=== PATIENT | male | born 1980 | race Caucasian/White ===

== ENCOUNTER 2019-02-04 13:23 | Inpatient (IN) ==
[2019-02-04] MEDS ORDERED: ACETAMINOPHEN 1,000 MG/100 ML VIAL IV STA (14:07)
[2019-02-04] MEDS ORDERED: PROCHLORPERAZINE 2 ML IV ONE (14:12)
[2019-02-04] MEDS ORDERED: SODIUM CHLORIDE 0.9% 1000ML 2,000 ML IV SCH (14:15)
--- NOTE | 2019-02-04 14:40 | XRay Report ---
XR chest 1V portable CLINICAL HISTORY: Chest Pain dyspnea COMPARISON STUDY: No previous studies for comparison. FINDINGS: Mild fullness of the mid to superior mediastinum felt to be technical due to the AP portabl e technique. Lungs are clear. Diaphragms are smooth. IMPRESSION: No acute process. The above report was generated using voice recognition software. It may contain grammatical, syntax or spelling errors. Electronically signed by: William Acevedo M.D. 02/04/2019 2:38 PM
[2019-02-04 14:42] LABS: Basophils # (auto) 0.01 K/uL (0-0.2); Basophils % (auto) 0.1 %; Hematocrit (blood only) 44.1 % (42-52); Hemoglobin 15.6 g/dL (14.0-18.0); Immature Granulocytes # (auto) 0.05 K/uL (0.00-0.02); Immature Granulocytes % (auto) 0.4 %; Lymphocytes # (auto) 0.75 K/uL (1.2-3.4); Lymphocytes % (auto) 6.1 %; Mean Corpuscular Hgb Conc 35.4 g/dL (32-36); Mean Corpuscular Volume 80.2 fL (80-100); Mean Platelet Volume 10.3 fL (7.4-10.4); Monocytes # (auto) 0.55 K/uL (0.11-0.59); Monocytes % (auto) 4.5 %; Neutrophils % (auto) 88.9 %; Platelet Count 179 K/uL (130-400); RDW Coefficient of Variation 12.9 % (11.5-14.5); RDW Standard Deviation 37.3 fL (36.4-46.3); White Blood Count 12.26 K/uL (4.8-10.8)
[2019-02-04 14:58] LABS: Albumin Level 3.6 gm/dl (3.4-5.0); BUN Creatinine Ratio 16.5 (10-20); Calcium 8.5 mg/dl (8.5-10.1); Creatinine Clr Calc Pharmacy 131.4 ml/min; Est GFR (African American) 115.1; Est GFR (Non-African American) 99.3; Potassium 3.7 mmol/L (3.5-5.1)
[2019-02-04 15:03] LABS: Albumin Globulin Ratio 0.8 (0.9-2); Bilirubin,Total 0.6 mg/dl (0.2-1); Globulin 4.4 gm/dl (2.5-4.0); Troponin I 0.03 ng/ml (0-0.045)
--- NOTE | 2019-02-04 15:42 | CT Scan Report ---
CT head/brain wo con CT DOSE: 884.08 mGy.cm HISTORY: Headache. Mental status change. Headache syncope TECHNIQUE: Multiaxial CT images of the head were performed without the use of intravenous contrast. A dose lowering technique was utilized adhering to the principles of ALARA. Comparison: 01/30/2019 Findings: The paranasal sinuses and mastoid air cells are clear. The calvarium and skull base are int act. The ventricles and sulci are within normal limits. There is no mass, hematoma, midline shift, or acute infarct. Impression: No acute intracranial abnormality. No change from the prior exam dated 01/30/2019. The above report was generated using voice recognition software. It may contain grammatical, syntax or spelling errors. Electronically signed by: William Acevedo M.D. 02/04/2019 3:41 PM
[2019-02-04] MEDS ORDERED: MAGNESIUM SULFATE / D5W 1 GM/100 ML BAG IV ONE (17:07)
[2019-02-04] MEDS ORDERED: NON-FORMULARY MEDICATION STA (17:07)
[2019-02-04] MEDS ORDERED: HALOPERIDOL LACTATE 5 MG in SODIUM CHLORIDE 0.9% 500 ML IV ONE (17:30)
[2019-02-04] MEDS ORDERED: XYLOCAINE 1%/SOD BICARB 20 ML VIAL INFIL ONE (18:49)
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
[2019-02-04] MEDS ORDERED: ACYCLOVIR CONSULT ACTIVE PRN (20:55)
[2019-02-04] MEDS ORDERED: ACETAMINOPHEN 325 MG TAB PO PRN (21:24)
[2019-02-04] MEDS ORDERED: VANCOMYCIN CONSULT ACTIVE PRN (21:24)
[2019-02-04] MEDS ORDERED: ICU PROTOCOL FOR HYPERGLYCEMIA PRN ×2 (21:24)
[2019-02-04 21:49] LABS: Amphetamines+Metham, Urine Neg (Neg); Barbiturates, Urine Neg (Neg); Benzodiazepine, Urine Neg (Neg); Cocaine, Urine Neg (Neg); MDMA (Ecstacy), Urine Neg (Neg); Methadone, Urine Neg (Neg); Opiate, Urine Neg (Neg); Phencyclidine, Urine Neg (Neg)
[2019-02-04] MEDS ORDERED: cefTRIAXone SODIUM 2,000 MG in DEXTROSE 5% 50 ML IV SCH (22:00)
[2019-02-04 22:10] LABS: Appearance CSF Clear; CSF Count Tube # 4; CSF Xanthrochromic No xanthochromia; Color CSF Colorless; Red Blood Cell CSF (A) 54 /uL (0-); Red Blood Cell CSF (B) 54 /uL (0-); White Blood Cell CSF (A) 4 /uL (0-5); White Blood Cell CSF (B) 2 /uL (0-5)
[2019-02-04] MEDS ORDERED: ACETAMINOPHEN 1,000 MG/100 ML VIAL IV PRN (22:12)
[2019-02-04 22:15] LABS: Total Protein CSF 53.6 mg/dl (15-45)
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
[2019-02-04] MEDS ORDERED: DEXTROSE 5% IV SCH (22:30)
[2019-02-04] MEDS ORDERED: ACYCLOVIR SOD IV SCH (22:30)
[2019-02-04] MEDS ORDERED: PHARMACY GLYCEMIC MGMT CONSULT PRN (22:34)
[2019-02-04 22:43] LABS: C Reactive Protein 1.17 mg/dl (0-0.29); T4 Free Thyroxine 1.26 ng/dl (0.8-1.6)
--- NOTE | 2019-02-04 22:47 | Pharmacy Report ---
Pharmacy Abx Dose Short Note - Date of Service February 04, 2019 - Assessment & Plan Assessment 38 yo Male/Female receiving VANC/CEFTRIAXONE/ACYCLOVIR-IV for treatment of possible MENINGITIS * Day # 1 of antimicrobial therapy. Plan: Vanc-IV: * Estimated pharmacokinetics: T 1/2~6 hrs * LOADING DOSE: VANC 2500mg (~20mg/kg) IV x 1, 02/04/19 2300 then * MAINTENANCE DOSE: VANC 1500mg (~12mg/kg) IV x 1 @ 02/05 0400 * Pharmacy to reassess 02/05 AM Acyclovir-IV: ordered 10mg/kg IBW (640mg) IV q 8 hours Glycemic Consult: * Give Lantus 20 units sq x 1 * Novolog Goal 140-180mg/dL, CF 20, CR 6. Ordered BSG q 4 hours. Pharmacy will continue to follow and will adjust dose/frequency as necessary. Thank you.
[2019-02-04] MEDS ORDERED: VANCOMYCIN HCL 2,500 MG in SODIUM CHLORIDE 0.9% 500 ML IV ONE (23:00)
[2019-02-04 23:14] LABS: Lyme Ab IgG w/WB Rflx Negative (Negative)
[2019-02-04 23:21] LABS: Lyme Ab IgM w/WB Rflx Equivocal (Negative)
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
[2019-02-05] MEDS ORDERED: INSULIN GLARGINE SOLOSTAR 100 UNITS/ML 3 ML PEN SC ONE
[2019-02-05] MEDS ORDERED: INSULIN ASPART 100 UNITS/ML VIAL SC SCH
[2019-02-05] MEDS ORDERED: GADOBUTROL 65ML VIAL IV PRN (00:42)
[2019-02-05] MEDS: INSULIN ASPART 100 UNITS/ML 3 ML PEN SC SCH ×2 (01:00→04:53)
[2019-02-05] MEDS ORDERED: PHENYTOIN IV STA (03:27)
[2019-02-05] MEDS ORDERED: SODIUM CHLORIDE 0.9% IV STA (03:27)
[2019-02-05] MEDS ORDERED: dexAMETHasone 4 MG in SYRINGE 0 ML IV SCH (04:00)
[2019-02-05] MEDS ORDERED: VANCOMYCIN HCL 1,500 MG in SODIUM CHLORIDE 0.9% 500 ML IV ONE (04:00)
[2019-02-05] MEDS ORDERED: NORMOSOL-R 1,000 ML IV SCH (05:00)
[2019-02-05 05:19] LABS: Hematocrit (blood only) 40.6 % (42-52); Hemoglobin 14.2 g/dL (14.0-18.0); Mean Corpuscular Volume 79.5 fL (80-100); Mean Platelet Volume 10.2 fL (7.4-10.4); Platelet Count 175 K/uL (130-400); RDW Coefficient of Variation 12.8 % (11.5-14.5); RDW Standard Deviation 36.7 fL (36.4-46.3); Red Blood Count 5.11 M/uL (4.7-6.1); White Blood Count 11.73 K/uL (4.8-10.8)
[2019-02-05 05:45] LABS: BUN Creatinine Ratio 16.9 (10-20); Calcium 7.8 mg/dl (8.5-10.1); Creatinine Clr Calc Pharmacy 142.9 ml/min; Est GFR (African American) 126.6; Est GFR (Non-African American) 109.2; Potassium 3.5 mmol/L (3.5-5.1)
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
[2019-02-05] MEDS ORDERED: RAPID SEQUENCE INDUCTION BAG ONE (05:50)
[2019-02-05] MEDS ORDERED: OPTIRAY 320 125ml IV PRN (06:16)
[2019-02-05] MEDS ORDERED: Heparin IV Standard *NO* Bolus IV ONE (06:17)
[2019-02-05] MEDS ORDERED: HEPARIN 25000 UNIT/500 ML D5W IV ONE (06:21)
[2019-02-05] MEDS ORDERED: PROPOFOL IV EMULSION 10 MG/ML 100 ML VIAL IV ONE (06:21)
[2019-02-05] MEDS ORDERED: Heparin Adult STANDARD Wt-Based Dextrose 5% 25,000 units/500 mL IV SCH (06:30)
[2019-02-05 06:36] LABS: Estimated Average Glucose 258 mg/dl; Hemoglobin A1C 10.6 % (4.5-5.6)
--- NOTE | 2019-02-05 06:38 | Procedure Note ---
Procedure Note Date of Service February 05, 2019 APC: Jacky Contreras PA-C. Attending: Dr. Wayne A time-out was completed verifying correct patient, procedure, site, positioning. Patient was evaluated and required intubation for airway protection. Sedative agent used: Fentanyl, Versed, Etomidate, Propofol Paralysis agent used: None Emergent consent was implied given patients rapidly declining clinical status and need for airway protection. The patient was prepared in the appropriate fashion. Sedation was achieved utilizing Fentanyl, Versed, Propofol and Etomidate, per Dr. Butt administration. The patient was easily ventilated using [id number] to achieve adequate oxygenation. A 7.5 [place] endotracheal tube was placed under Glidescope to 26 cm at the lip. The stylette was removed and balloon was inflated with 10mL of air. Appropriate Colorimetric change was appreciated. Bilateral breath sounds were heard without air sounds in the abdomen. Dr. Butt was present for the entire procedure. Post Intubation Chest X-ray confirms placement without pneumothorax. Patient tolerated the procedure well and there were no immediate complications.
[2019-02-05] MEDS ORDERED: fentaNYL citrate 100 MCG/2 ML VIAL IV PRN (06:42)
[2019-02-05] MEDS ORDERED: PROPOFOL 1,000 MG/100 ML VIAL IV SCH (06:42)
--- NOTE | 2019-02-05 06:46 | CT Scan Report ---
CT head/brain wo con CLINICAL HISTORY: 38 years-old Male with AMS, eval for change in status. Acutely altered mental stat us TECHNIQUE: Multiple axial CT images of the head were obtained without contrast. A dose lowering tech nique was utilized adhering to the principles of ALARA. COMPARISON: CTA had of same day, brain MRI and CT head 02/04/2019. FINDINGS: Study is mildly motion degraded. No acute intracranial hemorrhage, midline shift, intracranial mass, hydrocephalus, territorial ischemia or abnormal extra-axial collection. The calvarium is intact. Mastoid air cells are clear. Minimal mucosal thickening about the right fro ntal sinus. The remaining paranasal sinuses are clear. Orbits are unremarkable. There are a few ovoid mildly hyperdense scalp lesions redemonstrated measuring up to 1.6 cm, possibly reflective of comple x sebaceous cysts. IMPRESSION: Motion degraded exam without acute intracranial abnormality. The above report was generated using voice recognition software. It may contain grammatical, syntax o r spelling errors. Electronically signed by: Hardik Thomas M.D. 02/05/2019 6:45 AM
--- NOTE | 2019-02-05 06:59 | XRay Report ---
XR chest 1V portable HISTORY: 38 years-old Male s/p intubation acute respiratory failure COMPARISON: Chest radiograph 02/04/2019 TECHNIQUE: Portable AP view of the chest FINDINGS: Lungs are hypoinflated with bronchovascular crowding and mediastinal widening. Endotracheal tube over lies the midline, 3.5 cm superior to the erasto. Enteric tube courses below the diaphragm with distal tip within the region of the mid gastric lumen. Mild right hemidiaphragmatic elevation. Right infrah ilar and bibasilar opacities suggest probable atelectasis. No pneumothorax, pleural effusion or overt pulmonary edema. Bones appear to be grossly intact. IMPRESSION: 1. Endotracheal tube overlies the midline, 3.5 cm superior to the erasto. 2. Enteric tube distal tip overlies the region of the mid gastric lumen. 3. Hypoinflation with bronchovascular crowding and probable bibasilar atelectasis. The above report was generated using voice recognition software. It may contain grammatical, syntax o r spelling errors. Electronically signed by: Hardik Thomas M.D. 02/05/2019 6:57 AM
[2019-02-05 07:00] LABS: INR 1.3 (0.9-1.1); Partial Thromboplastin Ratio 0.8; Partial Thromboplastin Time 22.7 Seconds (21.0-31.0); Prothrombin Time 13.4 Seconds (9.0-12.0)
--- NOTE | 2019-02-05 07:03 | Magnetic Resonance Report ---
MR brain wo/w con CLINICAL HISTORY: intractable migraine headache COMPARISON STUDY: No previous studies for comparison. TECHNIQUE: Utilizing a 1.5 Surekha magnet and dedicated coil, multiplanar, multiecho imaging of the br ain was performed pre and postcontrast administration. IV administration of 8 mL of Gadavist contras t was uneventful. FINDINGS: Diffusion-weighted images show evidence for cortical ischemic change lateral aspect left te mporal lobe. T1 images show increase in signal of the left transverse sinus. Coronal FLAIR images edy w several small foci of increased signal within the periventricular and deep matter regions. There is persistent increased signal within the left transverse sinus as well as components of the left jugul ar vein. The ventricular system is midline. Postcontrast images again show atypical enhancement of the left tr ansverse sinus with normal enhancement characteristics the right transverse sinus. There is slight me ningeal enhancement over the left temporal parietal meningeal region. There is also subtle enhancemen t overlying the left tentorium may be a trace of left temporal parenchymal enhancement. Diagnostic considerations include ischemic process, with the possibility of meningitis versus changes and secondary venous thrombosis also diagnostic considerations.. IMPRESSION: 1. Small focus of acute cortical ischemic change lateral aspect left temporal lobe. 2. This is associated with probable left transverse sinus venous thrombosis. 3. Nonspecific enhancement characteristics of the left dura/meninges over the left cerebral hemispher e suspect for entities such as meningitis, versus reactive change due to left transverse sinus thromb osis. The above report was generated using voice recognition software. It may contain grammatical, syntax or spelling errors. Electronically signed by: William Acevedo M.D. 02/05/2019 7:02 AM
--- NOTE | 2019-02-05 07:10 | CT Scan Report ---
NECK CTA HISTORY: LEFT venous sinsus thrombsis w/ f/u TECHNIQUE: Multiaxial CT images of the neck were performed following the intravenous administration o f contrast to evaluate the major cervical vessels. Maximum intensity projection images were also obta ined. All measurements were calculated based on NASCET criteria. A dose lowering technique was utili zed adhering to the principles of ALARA. COMPARISON STUDY: None. FINDINGS: The aortic arch and proximal great vessels are widely patent. There is no significant sten osis, occlusion, or dissection identified within the bilateral common carotid, internal carotid, or v ertebral arteries. The lung apices are clear. The left transverse sinus, sigmoid sinus, and proximal left internal jugular vein at the C1 level is not opacified. There is trace contrast throughout the r emaining left internal jugular vein suggesting nonocclusive thrombus. However, this could be due to i nadequate opacification. IMPRESSION: 1. No significant stenosis, occlusion, or dissection identified within the carotid or vertebral arter ies. 2. Nonopacification of the left transverse sinus, left sigmoid sinus, and proximal left internal jugu lar vein at the C1 level. This is concerning for thrombus. There is also partial opacification of the remaining left internal jugular vein suggesting nonocclusive thrombus. However, this should be confi rmed with venous Doppler. Electronically signed by: Obinna Colunga M.D. 02/05/2019 7:08 AM
--- NOTE | 2019-02-05 07:13 | Magnetic Resonance Report ---
MR venography head wo con CLINICAL HISTORY: f/u ?Venous sinus thrombus, meningitis, altered mental status COMPARISON STUDY: Head CTA 02/05/2019. Brain MRI 02/04/2019. FINDINGS: There is signal loss throughout the left transverse sinus, left sigmoid sinus, left interna l jugular vein likely representing thrombosis. The superior sagittal sinus, straight sinus, vein of G radha, internal cerebral veins, right transverse sinus, and right sigmoid sinus appear patent. IMPRESSION: Above findings suggest thrombosis of the left transverse sinus, left sigmoid sinus, and left internal jugular vein. Electronically signed by: Obinna Colunga M.D. 02/05/2019 7:11 AM
--- NOTE | 2019-02-05 07:21 | CT Scan Report ---
CT angio head w con CLINICAL HISTORY: 38 years-old Male with f/u for LEFT dural venous sinus thrombosis. Left-sided du ral venous thrombosis COMPARISON STUDY: CTA of the neck and MRA head of same day TECHNIQUE: Following the IV administration of 119 cc of Optiray 320, CT angiogram of the brain was pe rformed from the skull base to the vertex. Images are reviewed in the axial, sagittal, and coronal pl anes. 3-D MIPS images are created and assessed. IV contrast was administered without complication. A dose lowering technique was utilized adhering to the principles of ALARA. CT DOSE: 1343.01 mGy.cm FINDINGS: CT ANGIOGRAM OF THE BRAIN: The imaged bilateral internal carotid arteries are patent. The bilateral anterior and middle cerebral arteries are also patent. The vertebrobasilar system and posterior cerebral arteries are widely venegas nt. There is no aneurysm, high-grade stenosis, or proximal branch occlusion identified. Nonopacification of the left internal jugular vein at the level of C1 with nonopacification of the si gmoid sinus and left transverse sinus compatible with thrombosis. The right internal jugular vein and remaining visualized dural venous sinuses appear patent. Incidental likely benign scalp lesions rede monstrated. Orbits are unremarkable. No acute calvarial fracture. Mastoid air cells and middle ear ca vities are clear. The paranasal sinuses are also generally clear with the exception of minimal right frontal maxillary sinus mucosal thickening. IMPRESSION: 1. No aneurysm, dissection, high-grade stenosis or proximal arterial branch occlusion. 2. Nonopacification of the left internal jugular vein, left sigmoid and transverse sinuses compatible with thrombosis. The above report was generated using voice recognition software. It may contain grammatical, syntax o r spelling errors. Electronically signed by: Hardik Thomas M.D. 02/05/2019 7:19 AM
--- NOTE | 2019-02-05 07:25 | Magnetic Resonance Report ---
MR angio head wo con HISTORY: 38 years-old Male f/u mri AMS, Meningitis, sinsus thrombus acutely altered mental status wi th possible meningitis and dural venous thrombosis COMPARISON: CTA had and neck and MRV of same day, MRI brain 02/04/2019 TECHNIQUE: MRA of the head was obtained without the use of IV contrast utilizing 3-D [id number] s equencing. All measurements were obtained according to NASCET criteria. FINDINGS: The large [id number] pipeline controller localizer images demonstrate no gross extracranial abnormality. The imaged bilateral internal carotid arteries, middle and anterior vertebral arteries are widely pat ent. The bilateral vertebral arteries, basilar and posterior cerebral arteries are also widely patent . No aneurysm, dissection, high-grade stenosis or proximal branch occlusion. Increased signal is noted about the left temporal lobe leptomeninges, left transverse and sigmoid sin uses and left internal jugular vein. IMPRESSION: 1. Unremarkable MRA of the head. 2. Increased signal about the left temporal lobe leptomeninges, with left transverse and sigmoid sinu s and left internal jugular vein thrombosis is better assessed on recent MRV and MR brain studies. The above report was generated using voice recognition software. It may contain grammatical, syntax o r spelling errors. Electronically signed by: Hardik Thomas M.D. 02/05/2019 7:24 AM
[2019-02-05] MEDS ORDERED: fentaNYL citrate 100 MCG/2 ML VIAL IV ONE (07:29)
[2019-02-05] MEDS ORDERED: ETOMIDATE 2 MG/ML 20 ML VIAL IV ONE (07:29)
[2019-02-05] MEDS ORDERED: MIDAZOLAM HCL 5 MG/ML VIAL IV ONE (07:29)
[2019-02-05] MEDS ORDERED: SUCCINYLCHOLINE CHLORIDE 20 MG/ML 10 ML VIAL IV ONE (07:29)
--- NOTE | 2019-02-05 09:34 | Procedure Note ---
Procedure Note Date of Service February 05, 2019 I was called the intensive care unit by Jacky Contreras PA-C, to assist in the intubation of a patient there who is going to be transferred to a tertiary care facility via aviation. His patient was tachycardic and hypertensive, with decreased mental status. Patient unable to talk to me to go over risks and benefits and discuss additional consent. It was my understanding that Mr. Contreras had discussed this with the patient previously as a possibility. I provided sedation while Mr. Contreras prepped for and performed intubation. Patient was given fentanyl, Versed, and etomidate. Please refer to the nursing notes for exact dosages. Patient continuously monitored, not hypoxic, and otherwise hemodynamically stable. Using video laryngoscopy, Mr. Contreras intubated the patient with an 8.0 ET tube. Tube was visualized passing through the vocal cords, positive color change noted on color capnography, bilateral breath sounds heard, and condensation noted in the ET tube. Patient sats remained stable in the 90s, heart rate and blood pressure otherwise stable also. Staff continue to make preparations as the flight crew was in route and patient was prepared for transfer.
[2019-02-05] MEDS ORDERED: PANTOprazole 40 MG in SYRINGE 0 ML IV SCH (11:00)
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
[2019-02-09 22:14] LABS: Source CSF
--- NOTE | 2019-02-10 11:01 | Coding Query ---
CODING QUERY To promote full compliance with coding requirements relating to patient care, provider participation is requested in all cases of dot compliance coordinator uncertainty. Please assist us with the question(s) below: Coding Question(s): 1. The Discharge Summary documents Cerebral Venous Sinus Thrombosis, Acute. Please specify below, in your clinical opinion, regarding the Acute Cerebral Venous Sinus Thrombosis. (X ) This is Nonpyogenic origin ( ) This is Septic origin 2. There is documentation, example on Critical Care Progress Note 02/05/19, of "evaluation of MRI demonstrated nonspecific findings with possible concerns for meningitis in addition to lack of flow for concerns for venous sinus thrombosis". Please clarify below, in your clinical opinion regarding the concerns for meningitis. (X ) Meningitis has been ruled-out ( ) Possible Meningitis ( ) possible Meningitis, Unspecified ( ) possible Meningitis, Other: Please Specify Physician's Response(s): Thank you [place] Gil Principal Diagnosis: "that condition established after study, to be chiefly responsible for occasioning the admission of the patient to the hospital for care." Co-Existing Principal Diagnosis: "when two or more diagnoses equally meet the criteria for principal diagnosis as determined by the circumstances of admission, diagnostic work up, and/or therapy provided, and the Alphabetic Index, Tabular List, or another coding guideline does not provide sequencing direction, any one of the diagnoses may be sequenced first." "When the physician has documented what appears to be a current diagnosis in the body of the record, but has not included the diagnosis in the final diagnostic statement, the physician should be asked whether the diagnosis should be added." ([facility] 2 QTR90. p3-4) DMITRY
--- NOTE | 2019-02-10 11:14 | Coding Query ---
BMI To promote full compliance with coding requirements relating to patient care, physician participation is requested in all cases of policy checker uncertainty. Please assist us with the question(s) below: Please place an X within the parenthesis (x). If other, please document: BMI 45 was documented in this record for this patient. If the BMI is significant, please check the box that provides a more specific associated diagnosis: ( ) Overweight/Obese () Obesity (X ) Morbid obesity ( ) Obesity Hypoventilation Syndrome (OHS) ( ) Heathy weight, not significant ( ) Underweight/Thin ( ) Other, please specify Thank you [place] ANDRES
[2019-02-10 12:30] LABS: Metanephrine, Plasma 37 pg/mL (<=57); Normetanephrine Plasma 215 pg/mL (<=148); Total Metanephrine Plasma 252 pg/mL (<=205)
[2019-02-11 08:32] LABS: HSV Type 1 DNA Not Detected (Not Detected); HSV Type 1&2 DNA Source CSF; HSV Type 2 DNA Not Detected (Not Detected); Lyme IgG CSF NO BANDS DETECTED; Lyme IgM CSF NO BANDS DETECTED; VDRL Qualitative CSF Nonreactive (Nonreactive)
[2019-02-11 12:43] LABS: 18KDIGG Band NONREACTIVE (NONREACTIVE); 23KDIGG Band NONREACTIVE (NONREACTIVE); 23KDIGM Band REACTIVE (NONREACTIVE); 28KDIGG Band NONREACTIVE (NONREACTIVE); 30KDIGG Band NONREACTIVE (NONREACTIVE); 39KDIGG Band NONREACTIVE (NONREACTIVE); 39KDIGM Band NONREACTIVE (NONREACTIVE); 41KDIGG Band NONREACTIVE (NONREACTIVE); 41KDIGM Band NONREACTIVE (NONREACTIVE); 45KDIGG Band NONREACTIVE (NONREACTIVE); 58KDIGG Band NONREACTIVE (NONREACTIVE); 66KDIGG Band REACTIVE (NONREACTIVE); 93KDIGG Band NONREACTIVE (NONREACTIVE); Lyme Antibodies, WB IgG NEGATIVE (NEGATIVE); Lyme Antibodies, WB IgM NEGATIVE (NEGATIVE)
[2019-02-12 07:20] LABS: Creatinine Ur 91 mg/dL (20-320); Total Metanephrine 435 mcg/g cr (94-445)
== END 2019-02-05 07:30 | disposition short-term general hospital (02) | DRG 92 ==
LOC: ED 13:23 → 1E 18:40

== ENCOUNTER 2020-04-08 04:36 | Inpatient (IN) ==
[2020-04-08] MEDS ORDERED: MoRPHine SULFATE 4 MG/ML 1 ML CARP\\VIAL IV STA (04:50)
[2020-04-08] MEDS ORDERED: ONDANSETRON INJ 2 MG/ML 2 ML VIAL IV STA (04:50)
[2020-04-08] MEDS ORDERED: SODIUM CHLORIDE 0.9% 1000ML 1,000 ML IV SCH (05:00)
[2020-04-08 05:18] LABS: Appearance Urine Cloudy (Clear); Bacteria Urine Automated Negative (Negative); Blood Urine 3+ (Negative); Color Urine Dark Yellow; Glucose Urine UA Negative (Negative); Ketones Urine Trace (Negative); Leukocyte Esterase Urine Trace (Negative); Nitrite Urine Negative (Negative); Protein Urine 2+ (Negative); Specific Gravity Urine 1.035 (1.000-1.030); Urobilinogen Urine Negative (Negative)
[2020-04-08 05:33] LABS: Basophils # (auto) 0.01 K/uL (0-0.2); Basophils % (auto) 0.2 %; Eosinophils # (auto) 0.09 K/uL (0-0.5); Eosinophils % (auto) 1.5 %; Hematocrit (blood only) 44.6 % (42-52); Hemoglobin 15.2 g/dL (14.0-18.0); Immature Granulocytes # (auto) 0.01 K/uL (0.00-0.02); Immature Granulocytes % (auto) 0.2 %; Lymphocytes # (auto) 0.99 K/uL (1.2-3.4); Lymphocytes % (auto) 16.3 %; Mean Corpuscular Hemoglobin 27.2 pg (25-34); Mean Corpuscular Hgb Conc 34.1 g/dL (32-36); Mean Corpuscular Volume 79.8 fL (80-100); Mean Platelet Volume 9.6 fL (7.4-10.4); Monocytes # (auto) 0.36 K/uL (0.11-0.59); Monocytes % (auto) 5.9 %; Neutrophils # (auto) 4.61 K/uL (1.4-6.5); Neutrophils % (auto) 75.9 %; Platelet Count 170 K/uL (130-400); RDW Coefficient of Variation 13.5 % (11.5-14.5); RDW Standard Deviation 38.8 fL (36.4-46.3); Red Blood Count 5.59 M/uL (4.7-6.1); White Blood Count 6.07 K/uL (4.8-10.8)
[2020-04-08 05:43] LABS: INR 2.4 (0.9-1.1); Partial Thromboplastin Ratio 1.2; Partial Thromboplastin Time 34.4 Seconds (21.0-31.0); Prothrombin Time 24.5 Seconds (9.0-12.0)
[2020-04-08 05:44] LABS: Bilirubin Urine Negative (Negative); Ictotest Urine Negative (Negative)
[2020-04-08 05:50] LABS: Albumin Level 3.8 gm/dl (3.4-5.0); BUN Creatinine Ratio 9.5 (10-20); Calcium 8.7 mg/dl (8.5-10.1); Creatinine Clr Calc Pharmacy 94.4 ml/min; Est GFR (African American) 72.7; Est GFR (Non-African American) 62.7; Potassium 3.9 mmol/L (3.5-5.1)
[2020-04-08 05:52] LABS: Albumin Globulin Ratio 0.9 (0.9-2); Bilirubin,Total 0.5 mg/dl (0.2-1); Globulin 4.1 gm/dl (2.5-4.0); Total Protein 7.9 gm/dl (6.4-8.2)
[2020-04-08 05:57] LABS: Calcium Oxalate Crystals Urine Present (None Prsent); Mucus Urine Present (None Prsent)
[2020-04-08 05:58] LABS: Cast Urine Automated 0 /lpf (0-5); RBC Urine Automated >30 /hpf (0-4)
[2020-04-08] MEDS ORDERED: cefTRIAXone SODIUM 2,000 MG/70 ML BAG IV STA (06:53)
--- NOTE | 2020-04-08 07:24 | CT Scan Report ---
ABDOMEN AND PELVIS CT WITHOUT CONTRAST CT DOSE: 1935.90 mGy.cm HISTORY: right flank pain TECHNIQUE: Multiaxial CT images of the abdomen and pelvis were performed without contrast. A dose lo wering technique was utilized adhering to the principles of ALARA. COMPARISON STUDY: Abdomen and pelvis CT 02/21/2020. FINDINGS: There is a 7 mm stone within the right ureteropelvic junction. This results in mild right h ydroureteronephrosis and periureteral fat stranding. No left renal stones. The lung bases are clear. Hepatic steatosis. Stable small cystic focus anterior to the liver. The gallbladder, pancreas, adrena l glands unremarkable. The spleen remains mildly enlarged measuring 14.5 cm in length. No retroperito katy lymphadenopathy. Suboptimal evaluation for bowel pathology due to the lack of intravenous and or al contrast. However, there is no definite bowel wall thickening or obstruction. Normal appendix. IMPRESSION: 1. A 7 mm obstructing stone at the right ureteropelvic junction resulting in mild right hydronephrosi s. 2. Mild splenomegaly, unchanged. 3. Hepatic steatosis. 4. No definite bowel wall thickening or obstruction. ACT 112: Negative or not required by law. Electronically signed by: Obinna Colunga M.D. 04/08/2020 7:22 AM
--- NOTE | 2020-04-08 07:36 | Ultrasound Report ---
TESTICULAR ULTRASOUND HISTORY: right testicle pain COMPARISON: None. FINDINGS: Right testis: 5.4 x 2.2 x 3.2 cm. There are no intratesticular masses. Normal color flow. No hydrocel e. The epididymis demonstrates a 1 cm cyst at the head. Left testis: 5.2 x 2.0 x 2.2 cm. There are no intratesticular masses. Normal color flow. No hydrocele . The epididymis demonstrates a 3 mm cyst at the head. Borderline left-sided varicocele. IMPRESSION: 1. Normal testes. 2. Small bilateral epididymal head cysts. ACT 112: Negative or not required by law. Electronically signed by: Obinna Colunga M.D. 04/08/2020 7:35 AM
--- NOTE | 2020-04-08 07:45 | Emergency Department Note ---
History of Present Illness General Chief complaint: Testicular Pain Stated complaint: TESTICULAR PAIN Time Seen by Provider: 04/08/20 04:44 History of Present Illness Maximum Pain Intensity: 3 This is a 39-year-old male presenting to the emergency department for severe acute onset right testicle pain. 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 The patient immediately came downstairs from the floor and checked into the ER for evaluation. He does have a history of kidney stones. When the pain began he was very nauseated and vomited 3 times. He does not have head, neck, chest, or upper abdomen pain. His testicle pain does radiate up into the right side abdomen. He has not taken anything [id number] for his symptoms as they just began. He rates his current pain a 3/10, however is a 9/10 at worst. He is on Coumadin for past history of venous sinus thrombosis. Home Medications Home Medications Medication Instructions Recorded Confirmed Type levetiracetam 1,000 mg PO BID 02/21/20 04/08/20 History metformin 1,000 mg PO BID 02/21/20 04/08/20 History cyclobenzaprine 10 mg PO BID PRN #10 tab 03/31/20 04/08/20 Rx warfarin See Rx Instructions .ROUTE .COMPLEX 03/31/20 04/08/20 History Allergies Allergy/AdvReac Type Severity Reaction Status Date / Time No Known Allergies Allergy Verified 04/08/20 05:39 Past Med/Surg History Medical History Admitted to intensive care unit Cerebral venous sinus thrombosis, acute DM type 2 (diabetes mellitus, type 2) (Chronic) Seizure-like activity Stroke Surgical History H/O umbilical hernia repair (Chronic) History of dental surgery (Chronic) Family History Denies family history of Seizure Social History Preferred Language: Austrian Communication Ability: Effective Watershed Engineer Required: No Beliefs That Will Affect Care: None Current Living Situation: Alone Feels Safe at Home: Yes Smoking Status: Never smoker Second Hand Exposure: No ; Hx Alcohol Use: No Hx Substance Use: No Review of Systems A total of 10 systems reviewed and were otherwise negative Physical Exam Vital Signs Vital Signs - 24 hr 04/08/20 04:36 04/08/20 04:41 04/08/20 06:36 Temperature 36.9 C Temperature Source Oral Pulse Rate 77 Pulse Rate [Left Brachial] 79 Respiratory Rate 16 16 Blood Pressure 157/101 H Blood Pressure [Left Arm] 145/88 H 128/85 Blood Pressure Mean 119 Blood Pressure Mean [Left Arm] 107 99 Pulse Oximetry 94 96 Oxygen Delivery Method Room Air Sepsis Recent Fever Within 48 Hours No Sepsis New/Unexplained Change in Mental Status No Sepsis Action Taken by Nursing No Action Required VITALS: Vitals are noted on the nurse's note and reviewed by myself. Vital signs stable. GENERAL: Well-developed, well-nourished, white male who is pacing back and forth in his ER room. He appears quite uncomfortable but is overall cooperative. HEAD: Normocephalic atraumatic. EYES: Pupils equal round and reactive to light and accommodation. Conjunctivae without injection, sclerae without icterus. Extraocular movements intact. NOSE: Patent, turbinates without inflammation or discharge. MOUTH: Mucous membranes moist. Tonsils are not enlarged. Pharynx without erythema, blood, or exudate. Uvula midline. Airway patent. NECK: Supple without nuchal rigidity. No lymphadenopathy. No thyromegaly. Cervical spine is nontender. HEART: Regular rate and rhythm without murmurs gallops or rubs. LUNGS: Clear to auscultation bilaterally without wheezes, rales or rhonchi. No retractions or accessory muscle use. ABDOMEN: Positive normal bowel sounds x 4. Soft, nontender, without masses or organomegaly. No guarding or rebound tenderness. : Normal-appearing external male genitalia. No significant testicular tenderness. No obvious hernia. MUSCULOSKELETAL: No muscle atrophy, erythema, or edema noted. Full range of motion in all extremities. Course Administered Medications Discontinued Medications Sodium Chloride (Nss 1000ml) 1,000 mls @ 999 mls/hr IV .[id number] KEITH Stop: 04/08/20 06:00 Last Infusion: 04/08/20 06:24 Dose: 0 mls/hr Documented by: [id number] Admin: 04/08/20 05:23 Dose: 999 mls/hr Documented by: [id number] Ceftriaxone Sodium (Rocephin) 2,000 mg in 70 mls @ 140 mls/hr IV NOW STA Stop: 04/08/20 07:22 Last Infusion: 04/08/20 07:35 Dose: 0 mls/hr Documented by: [id number] Admin: 04/08/20 07:04 Dose: 140 mls/hr Documented by: [id number] Morphine Sulfate (Morphine Sulfate) 4 mg IV NOW STA Stop: 04/08/20 04:51 Last Admin: 04/08/20 05:22 Dose: 4 mg Documented by: [id number] Ondansetron HCl (Zofran) 4 mg IV NOW STA Stop: 04/08/20 04:51 Last Admin: 04/08/20 05:22 Dose: 4 mg Documented by: [id number] Medical Decision Making Differential Diagnosis Differential diagnosis: Etiologies such as shingles, pyelonephritis/UTI, renal colic, appendicitis, diverticulitis, mesenteric ischemia, torsion, aortic pathology, infections, inflammatory bowel disease, bowel obstruction, PUD, biliary pathology, as well as others were entertained. Laboratory Data Result diagrams: 04/08/20 05:15 04/08/20 05:15 Lab Results 04/08/20 04/08/20 04/08/20 Range/Units 04:45 05:15 05:15 WBC 6.07 (4.8-10.8) K/uL RBC 5.59 (4.7-6.1) M/uL Hgb 15.2 (14.0-18.0) g/dL Hct 44.6 (42-52) % MCV 79.8 L (80-100) fL MCH 27.2 (25-34) pg MCHC 34.1 (32-36) g/dL RDW Std Deviation 38.8 (36.4-46.3) fL RDW Coeff of Shelley 13.5 (11.5-14.5) % Plt Count 170 (130-400) K/uL MPV 9.6 (7.4-10.4) fL Immature Gran % (Auto) 0.2 % Neut % (Auto) 75.9 % Lymph % (Auto) 16.3 % [place] % (Auto) 5.9 % Eos % (Auto) 1.5 % Baso % (Auto) 0.2 % Immature Gran # (Auto) 0.01 (0.00-0.02) K/uL Neut # (Auto) 4.61 (1.4-6.5) K/uL Lymph # (Auto) 0.99 L (1.2-3.4) K/uL [place] # (Auto) 0.36 (0.11-0.59) K/uL Eos # (Auto) 0.09 (0-0.5) K/uL Baso # (Auto) 0.01 (0-0.2) K/uL PT 24.5 H (9.0-12.0) Seconds INR 2.4 H (0.9-1.1) APTT 34.4 H (21.0-31.0) Seconds PTT Ratio 1.2 Sodium (136-145) mmol/L Potassium (3.5-5.1) mmol/L Chloride (98-107) mmol/L Carbon Dioxide (21-32) mmol/L Anion Gap (3-11) BUN (7-18) mg/dl Creatinine (0.6-1.4) mg/dl Est Cr Clr Drug Dosing ml/min Est GFR ( Amer) Est GFR (Non-Af Amer) BUN/Creatinine Ratio (10-20) Glucose (70-99) mg/dl Calcium (8.5-10.1) mg/dl Total Bilirubin (0.2-1) mg/dl AST (15-37) U/L ALT (12-78) U/L Alkaline Phosphatase (45-117) U/L Total Protein (6.4-8.2) gm/dl Albumin (3.4-5.0) gm/dl Globulin (2.5-4.0) gm/dl Albumin/Globulin Ratio (0.9-2) Urine Color Dark Yellow Urine Appearance Cloudy A (Clear) Urine pH 5.0 (4.5-7.5) Ur Specific [place] 1.035 H (1.000-1.030) Urine Protein 2+ H (Negative) Urine Glucose (UA) Negative (Negative) Urine Ketones Trace H (Negative) Urine Blood 3+ H (Negative) Urine Nitrite Negative (Negative) Urine Bilirubin Negative (Negative) Urine Urobilinogen Negative (Negative) Ur Leukocyte Esterase Trace H (Negative) Urine WBC (Auto) 1-5 (0-5) /hpf Urine RBC (Auto) >30 H (0-4) /hpf U Hyaline Cast (Auto) 0 (0-5) /lpf U Epithel Cells (Auto) 5-10 H (0-5) /lpf Urine Bacteria (Auto) Negative (Negative) Calcium Oxalate Crystal Present A (None Prsent) Urine Mucus Present A (None Prsent) Urine Yeast Not Reportable 04/08/20 Range/Units 05:15 WBC (4.8-10.8) K/uL RBC (4.7-6.1) M/uL Hgb (14.0-18.0) g/dL Hct (42-52) % MCV (80-100) fL MCH (25-34) pg MCHC (32-36) g/dL RDW Std Deviation (36.4-46.3) fL RDW Coeff of [place] (11.5-14.5) % Plt Count (130-400) K/uL MPV (7.4-10.4) fL Immature Gran % (Auto) % Neut % (Auto) % Lymph % (Auto) % [place] % (Auto) % Eos % (Auto) % Baso % (Auto) % Immature Gran # (Auto) (0.00-0.02) K/uL Neut # (Auto) (1.4-6.5) K/uL Lymph # (Auto) (1.2-3.4) K/uL [place] # (Auto) (0.11-0.59) K/uL Eos # (Auto) (0-0.5) K/uL Baso # (Auto) (0-0.2) K/uL PT (9.0-12.0) Seconds INR (0.9-1.1) APTT (21.0-31.0) Seconds PTT Ratio Sodium 139 (136-145) mmol/L Potassium 3.9 (3.5-5.1) mmol/L Chloride 105 (98-107) mmol/L Carbon Dioxide 28 (21-32) mmol/L Anion Gap 6.0 (3-11) BUN 13 (7-18) mg/dl Creatinine 1.41 H (0.6-1.4) mg/dl Est Cr Clr Drug Dosing 94.4 ml/min Est GFR ( Amer) 72.7 Est GFR (Non-Af Amer) 62.7 BUN/Creatinine Ratio 9.5 L (10-20) Glucose 180 H (70-99) mg/dl Calcium 8.7 (8.5-10.1) mg/dl Total Bilirubin 0.5 (0.2-1) mg/dl AST 20 (15-37) U/L ALT 42 (12-78) U/L Alkaline Phosphatase 65 (45-117) U/L Total Protein 7.9 (6.4-8.2) gm/dl Albumin 3.8 (3.4-5.0) gm/dl Globulin 4.1 H (2.5-4.0) gm/dl Albumin/Globulin Ratio 0.9 (0.9-2) Urine Color Urine Appearance (Clear) Urine pH (4.5-7.5) Ur Specific [place] (1.000-1.030) Urine Protein (Negative) Urine Glucose (UA) (Negative) Urine Ketones (Negative) Urine Blood (Negative) Urine Nitrite (Negative) Urine Bilirubin (Negative) Urine Urobilinogen (Negative) Ur Leukocyte Esterase (Negative) Urine WBC (Auto) (0-5) /hpf Urine RBC (Auto) (0-4) /hpf U Hyaline Cast (Auto) (0-5) /lpf U Epithel Cells (Auto) (0-5) /lpf Urine Bacteria (Auto) (Negative) Calcium Oxalate Crystal (None Prsent) Urine Mucus (None Prsent) Urine Yeast Imaging Data Radiologist's Impression: ABDOMEN AND PELVIS CT WITHOUT CONTRAST CT DOSE: 1935.90 mGy.cm HISTORY: right flank pain TECHNIQUE: Multiaxial CT images of the abdomen and pelvis were performed without contrast. A dose lowering technique was utilized adhering to the principles of ALARA. COMPARISON STUDY: Abdomen and pelvis CT 02/21/2020. FINDINGS: There is a 7 mm stone within the right ureteropelvic junction. This results in mild right hydroureteronephrosis and periureteral fat stranding. No left renal stones. The lung bases are clear. Hepatic steatosis. Stable small cystic focus anterior to the liver. The gallbladder, pancreas, adrenal glands unremarkable. The spleen remains mildly enlarged measuring 14.5 cm in length. No retroperitoneal lymphadenopathy. Suboptimal evaluation for bowel pathology due to the lack of intravenous and oral contrast. However, there is no definite bowel wall thickening or obstruction. Normal appendix. IMPRESSION: 1. A 7 mm obstructing stone at the right ureteropelvic junction resulting in mild right hydronephrosis. 2. Mild splenomegaly, unchanged. 3. Hepatic steatosis. 4. No definite bowel wall thickening or obstruction. MDM Narrative Physical exam and history were performed. Nursing notes, EMR, and Medication List were personally reviewed. Patient appears to have right testicle pain bring him to the ER. On examination the patient appears quite uncomfortable, although he does not have any reproducible discomfort in the right side testicles. IV access was established and labs were obtained. He was hydrated with normal saline and given IV morphine and IV Zofran for comfort. The patient was sent to ultrasound for t orsion rule out, as well as to CT scan for possible kidney stone. The patient's blood work is as above and was reviewed. He does not have a significantly elevated white blood cell count, gross anemia, or significant electrolyte imbalance. INR is 2.4. His creatinine is slightly elevated at 1.41. Urine is with ketones, blood, esterase, mucus, and calcium oxalate. The patient was given IV Rocephin here in the ER. Ultrasound returned as above and was reviewed. He does not have significant acute findings on testicle ultrasound. CT scan of the abdomen is much more revealing, showing a 7 mm proximal ureteral calculi with hydronephrosis and perinephric stranding. Clinically this does correlate with his symptoms. Overall the patient does not appear well for discharge home. He has a fairly large proximal ureteral calculi with signs of infection. The case was discussed with both urology and the hospitalist service. Please see their dictation for further patient course, plan, and disposition. The chart was completed utilizing [employer] Voice Recognition Software. Grammatical errors, random word insertions, pronoun errors, and incomplete sentences are an occasional consequence of this system due to software limitations, ambient noise, and hardware issues. Any formal questions or concerns about the content, text, or information contained within the body of this dictation should be directly addressed to the provider for clarification. . Impression & Plan Hydronephrosis with renal and ureteral calculous obstruction, Acute UTI Discharge Plan Visit Data Chief Complaint: Testicular Pain Stated Complaint: TESTICULAR PAIN ED Provider: Kath Brown ED Midlevel Provider: Dakota Sethi Discharge Problem: Hydronephrosis with renal and ureteral calculous obstruction, Acute UTI Forms Stand Alone Forms: My [facility] [employer] Prescriptions Prescriptions: No Action levetiracetam 500 mg tablet 1,000 mg PO BID RF: 0 metformin 1,000 mg tablet 1,000 mg PO BID RF: 0 warfarin 5 mg tablet See Rx Instructions .ROUTE .COMPLEX RF: 0 cyclobenzaprine 10 mg tablet 10 mg PO BID PRN (Reason: muscle spasm) Qty: 10 RF: 0 Referrals Referrals: William Brown MD [Primary Care Provider] -
--- NOTE | 2020-04-08 07:55 | History & Physical Report ---
Date of Service April 08, 2020 Assessment & Plan (1) Testicular pain, right: (2) Renal stone: (3) UTI (urinary tract infection): (4) DM type 2 (diabetes mellitus, type 2): (5) Hydronephrosis concurrent with and due to calculi of kidney and ureter: (6) VALDO (acute kidney injury): IV Cipro, on case, IV Fluids, Pain Meds, Hold Warfarin-Hx of Cerebral V Thrombosis/CVA/Seizure, Continue Keppra, Hold Metformin, SSI A 7 mm obstructing stone at the right ureteropelvic junction resulting in mild right hydronephrosis. ROS-No Headache, No Visual Changes, No Nausea, No Vomiting, No Fever, No Chills, No Neck Pain or Stiffness, No Chest Pain, No Palpitations, No SOB, No SCHULZ, No Cough, No Sputum, No Wheezing, No Abdominal Pain, No Diarrhea, No Hematemesis, No Hemoptysis, No Unexpected Weight Loss, No Flank pain, No Melena, No Hematochezia, No Frequency, No Urgency, No Burning, No Hematuria, No Rashes, No Diaphoresis. Appetite is Normal, R Testicular Pain Physical Exam Gen-AAO x 3, NAD, Afebrile Head-NCAT, EOMI, PERRLA, Anicteric Sclera, No Posterior Pharyngeal Erythema Neck-Supple, No JVD, No Thyromegaly, No Masses, No LAD, No Bruits Lungs-Clear to Auscultation Bilaterally, No Rales, No Rhonchi, No Wheezing, No Crepitus Chest-No S4, +S1, +S2, No S3, No Murmurs, No Rubs, No Gallops, No Ectopy Abdomen-Soft, Bowel Sounds Present, Non Tender, Non Distended, No Hepatomegaly, No Splenomegaly, No Palpable Masses, No Rebound, No Rigidity, No Guarding Musculoskeletal-Full Range of Motion Bilaterally, No CVAT Extremities-No Cyanosis, No Clubbing, No Edema Nuero-Cranial Nerves II-XII grossly intact, Motor WNL, DTRs WNL, Strength WNL, Non Focal Psych-Normal Mood Admission and Anticipated Discharge Date Admission Date: 04/08/20 Anticipated date of discharge: 04/09/20 History of Present Illness Chief Complaint: Testicular Pain Primary Care Provider: William Brown MD 39 yo male c PMH of 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 He came to the ER and was found to have R renal stone c mild hydronephrosis. He was given pain meds and Cipro in the ER and will be seen by Dr Hinojosa from Urology. Allergies Allergy/AdvReac Type Severity Reaction Status Date / Time No Known Allergies Allergy Verified 04/08/20 05:39 Home Medications Home Medications Medication Instructions Recorded Confirmed Type levetiracetam 1,000 mg PO BID 02/21/20 04/08/20 History metformin 1,000 mg PO BID 02/21/20 04/08/20 History cyclobenzaprine 10 mg PO BID PRN #10 tab 03/31/20 04/08/20 Rx warfarin See Rx Instructions .ROUTE .COMPLEX 03/31/20 04/08/20 History Past Med/Surg History Medical History Admitted to intensive care unit Cerebral venous sinus thrombosis, acute DM type 2 (diabetes mellitus, type 2) (Chronic) Seizure-like activity Stroke Surgical History H/O umbilical hernia repair (Chronic) History of dental surgery (Chronic) Family History Denies family history of Seizure Social History Preferred Language: Divehi Communication Ability: Effective 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 Beliefs That Will Affect Care: None Current Living Situation: Alone Feels Safe at Home: Yes Smoking Status: Never smoker Second Hand Exposure: No ; Hx Alcohol Use: Yes Alcohol type: beer Hx Substance Use: No Results & Data Results & Data ([facility]) Vital Signs (Past 12 Hours) Vital Signs Temp Pulse Pulse Resp BP BP Pulse Ox 04/08/20 06:36 128/85 04/08/20 04:41 36.9 C 77 16 157/101 H 96 04/08/20 04:36 79 16 145/88 H 94 Allergies No Known Allergies Allergy (Verified 04/08/20 05:39) Height/Weight/Isolation Height 5 ft 8 in Weight 132.2 kg Chemistry 04/08/20 05:15 Sodium 139 Potassium 3.9 Chloride 105 Carbon Dioxide 28 Anion Gap 6.0 BUN 13 Creatinine 1.41 H Glucose 180 H Urinalysis 04/08/20 04:45 Urine Color Dark Yellow Urine Appearance Cloudy A Urine pH 5.0 Ur Specific [place] 1.035 H Urine Protein 2+ H Urine Glucose (UA) Negative Urine Ketones Trace H Urine Blood 3+ H Urine Nitrite Negative Urine Bilirubin Negative
--- NOTE | 2020-04-08 09:07 | Urology Consultation ---
Date of Consultation April 08, 2020 Assessment & Plan (1) Hydronephrosis concurrent with and due to calculi of kidney and ureter: Right UPJ stone with obstruction Pain currently controlled with medications but had severe discomfort overnight Discussed different options I will keep him n.p.o. for now and plan on cystoscopy and right ureteral stent placement I have explained this would be step 1 of a 2 step process to definitively treat his stone He is understanding and anxious to move forward with the procedure as he would like to have relief of his pain Risks, benefits discussed History of Present Illness Attending Physician: Adan Patel DO History of Present Illness 39-year-old gentleman who presented to the emergency room overnight with severe right flank pain radiating to the testicle Work-up revealed a right UPJ stone with hydronephrosis and some perinephric stranding Afebrile Some mild nausea No prior history of kidney stones or kidney stone related surgeries He has an umbilical hernia repair and wisdom tooth extraction He has an interesting history including a cerebral venous sinus thrombus and associated seizure-like activity Allergies Allergy/AdvReac Type Severity Reaction Status Date / Time No Known Allergies Allergy Verified 04/08/20 05:39 Home Medications Home Medications Medication Instructions Recorded Confirmed Type levetiracetam 1,000 mg PO BID 02/21/20 04/08/20 History metformin 1,000 mg PO BID 02/21/20 04/08/20 History cyclobenzaprine 10 mg PO BID PRN #10 tab 03/31/20 04/08/20 Rx warfarin See Rx Instructions .ROUTE .COMPLEX 03/31/20 04/08/20 History Patient History Medical History Admitted to intensive care unit Cerebral venous sinus thrombosis, acute DM type 2 (diabetes mellitus, type 2) (Chronic) Seizure-like activity Stroke Surgical History H/O umbilical hernia repair (Chronic) History of dental surgery (Chronic) Family History Denies family history of Seizure Social History Preferred Language: Icelandic Communication Ability: Effective Mental Health Nurse Practitioner Required: No Beliefs That Will Affect Care: None Current Living Situation: Alone Feels Safe at Home: Yes Smoking Status: Never smoker Second Hand Exposure: No ; Hx Alcohol Use: No Hx Substance Use: No Review of Systems Constitutional: no fever, no chills and no fatigue Eyes: no worsening vision Ear, Nose, Mouth, Throat: no facial pain and no pain with swallowing Respiratory: no cough and no dyspnea Cardiovascular: no chest pain and no palpitations Gastrointestinal: + abdominal pain and + nausea; no vomiting Genitourinary: + testicle pain Musculoskeletal: no back pain Integumentary: no rash and no urticaria Neurologic: no gait abnormality and no unsteadiness Psychiatric: no behavioral changes and no depression Endocrine: no fatigue Physical Exam Physical Exam: Comfortable appearing Mildly tender on the right flank Constitutional: well developed and well nourished Neck: neck nontender Respiratory: normal respiratory effort; no respiratory distress and does not use accessory muscles Cardiovascular: Rate/Rhythm: regular rate Vessels: radial pulses present Extremities: no edema Gastrointestinal (Abdomen): Inspection/Auscultation: abdomen normal to inspection Percussion/Palpation: abdomen soft; abdomen nontender and no guarding Musculoskeletal: Head/Neck/Chest: normocephalic and head atraumatic Extremities: extremities normal to inspection Skin: no rashes and no lesions Trauma: no evidence of skin trauma Neurologic: awake; not obtunded Speech / Cognition: normal speech Motor/Sensory: no tremor Psychiatric: Orientation: alert and oriented x 3 Genitourinary: no CVA tenderness Lymphatic: no lymphadenopathy Results & Data Vital Signs (Past 12 Hours) Vital Signs Temp Pulse Pulse Resp BP BP Pulse Ox 04/08/20 06:36 128/85 04/08/20 04:41 36.9 C 77 16 157/101 H 96 04/08/20 04:36 79 16 145/88 H 94 PG Care Time/CCT Total # of Minutes Spent Total Time Spent with Patient: Total time spent is greater than 50% in coordination of care (as documented) at patient's floor/unit and/or counseling patient: Coding Level of Care Code 95254 Inpt Consult Level 4 Diagnoses Hydronephrosis concurrent with and due to calculi of kidney and ureter N13.2
[2020-04-08] MEDS ORDERED: GLUCOSE 40% GEL 15 GM TUBE PO PRN (09:13)
[2020-04-08] MEDS ORDERED: GLUCAGON FOR INJ 1 MG VIAL SQ PRN (09:13)
[2020-04-08] MEDS ORDERED: MAGNESIUM HYDROXIDE SUSP 30 ML UDC PO PRN (09:13)
[2020-04-08] MEDS ORDERED: ACETAMINOPHEN 325 MG TAB PO PRN (09:13)
[2020-04-08] MEDS ORDERED: CARBOHYDRATES FOR HYPOGLYCEMIA PO PRN (09:13)
[2020-04-08] MEDS ORDERED: PHARMACY GLYCEMIC MGMT CONSULT PRN (09:13)
[2020-04-08] MEDS ORDERED: DEXTROSE 50% 50 ML SYRINGE IV PRN (09:13)
[2020-04-08] MEDS ORDERED: ONDANSETRON INJ 2 MG/ML 2 ML VIAL IV PRN (09:13)
[2020-04-08] MEDS ORDERED: GLUCOSE 10 TABS/TUBE PO PRN (09:13)
[2020-04-08] MEDS ORDERED: CYCLOBENZAPRINE HCL 10 MG TAB PO PRN (09:31)
[2020-04-08] MEDS: levETIRAcetam 500 MG TAB PO SCH ×2 (10:45→20:46)
[2020-04-08] MEDS: CIPROFLOXACIN / D5W 400 MG/200 ML BAG IV SCH ×2 (10:45→21:52)
--- NOTE | 2020-04-08 11:07 | Pharmacy Report ---
Glycemic Control Consultation - Date of Service April 08, 2020 - Scope Scope: Glycemic Pharmacist consulted for glycemic control and to write orders per [facility] inpatient glycemic control protocol. - Objective Weight: 132.2 kg Accuchecks BSG (last 24hrs): 04/08/20 04/08/20 05:15 10:16 Glucose 180 H POC Glucose 130 H Laboratory Data (last 24hrs): 04/08/20 05:15 Potassium 3.9 Carbon Dioxide 28 Anion Gap 6.0 Creatinine 1.41 H Est Cr Clr Drug Dosing 94.4 - Recent Pertinent Medications Outpatient Anti-diabetic Regimen: * Metformin 1 gm BID * A1c = 10.6 % 02/05/19 Inpatient Insulin Regimen and Causes of Insulin Resistance: - Assessment & Plan Assessment & Plan: ASSESSMENT: * 39 y/o male admitted for hydronephrosis due to R UPJ stone. H/o T2DM, stroke and seizure. No recent A1c available to evaluate outpatient control. * Pt is maintained on oral antidiabetic agents as an outpatient * Oral agents are not recommended for inpatient use d/t drug interactions, changing PO intake, and difficulty titrating for acute hyper/hypoglycemia. ADA recommends re-initiating outpatient oral agents 1-2 days prior to discharge if/when appropriate if they were held on admission. * Will hold oral agents for admission and utilize SQ basal bolus insulin regimen which is the recommended regimen for inpatient glycemic control. * Will initiate weight based insulin dosing for insulin aria patient and titrate based on BSG trends. * Patient will be ordered a diet today but will be NPO after midnight. Will provide single basal insulin dose now but nothing further in anticipation of NPO status. PLAN FOR INPATIENT GLYCEMIC CONTROL: * Holding outpatient oral diabetes medications * Basal insulin * Lantus 25 units x 1 now (~0.25 units/kg of adj body weight) * Starting tomorrow, Lantus 10-15 units BID per ordered scale * Bolus insulin * NovoLog per scale ACHS or Q6hrs while NPO * Goal Range: Low 110 mg/dL - High 140 mg/dL * Correction Factor: 25 mg/dL/unit * Nutritional / Prandial insulin per carb ratio of 1 unit per 8 grams CHO consumed * A1c w/ AM labs to evaluate recent outpatient control * Please note that the plan above was derived based on current level of insulin resistance and hospital stress. These recommendations are appropriate for inpatient admission only. Plan of care upon discharge will need to be reassessed to avoid potential outpatient hypo/hyperglycemia. Thank you.
[2020-04-08] MEDS ORDERED: INSULIN GLARGINE SOLOSTAR 100 UNITS/ML 3 ML PEN SC ONE (11:30)
[2020-04-08] MEDS: MoRPHine SULFATE 4 MG/ML 1 ML CARP\\VIAL IV PRN (11:55)
[2020-04-08] MEDS: INSULIN ASPART 100 UNITS/ML 3 ML PEN SC SCH ×3 (13:19→20:55)
[2020-04-08] MEDS: KETOROLAC TROMETHAMINE 15 MG/ML VIAL IV PRN (16:51)
[2020-04-09 06:00] LABS: Hematocrit (blood only) 45.9 % (42-52); Hemoglobin 15.3 g/dL (14.0-18.0); Mean Corpuscular Hemoglobin 27.1 pg (25-34); Mean Corpuscular Hgb Conc 33.3 g/dL (32-36); Mean Corpuscular Volume 81.4 fL (80-100); Mean Platelet Volume 9.6 fL (7.4-10.4); Platelet Count 152 K/uL (130-400); RDW Coefficient of Variation 13.8 % (11.5-14.5); RDW Standard Deviation 40.9 fL (36.4-46.3); Red Blood Count 5.64 M/uL (4.7-6.1); White Blood Count 5.54 K/uL (4.8-10.8)
[2020-04-09 06:13] LABS: INR 2.5 (0.9-1.1); Prothrombin Time 24.7 Seconds (9.0-12.0)
[2020-04-09 06:33] LABS: Estimated Average Glucose 120 mg/dl; Hemoglobin A1C 5.8 % (4.5-5.6)
[2020-04-09 06:36] LABS: BUN Creatinine Ratio 11.5 (10-20); Calcium 8.5 mg/dl (8.5-10.1); Est GFR (African American) 87.5; Est GFR (Non-African American) 75.5
--- NOTE | 2020-04-09 07:27 | Urology Progress Note ---
Date of Service April 09, 2020 Assessment & Plan (1) Hydronephrosis concurrent with and due to calculi of kidney and ureter: R UPJ stone plan for cysto, stent insertion today risks, benefits, alternatives discussed Subjective no major changes overnight, no stone passage no hematuria or dysuria pain ok with meds Physical Exam Constitutional: well developed and well nourished Neck: neck nontender Respiratory: normal respiratory effort; no respiratory distress and does not use accessory muscles Cardiovascular: Rate/Rhythm: regular rate Vessels: radial pulses present Extremities: no edema Gastrointestinal (Abdomen): Inspection/Auscultation: abdomen normal to inspection Percussion/Palpation: abdomen soft; abdomen nontender and no guarding Musculoskeletal: Head/Neck/Chest: normocephalic and head atraumatic Extremities: extremities normal to inspection Skin: no rashes and no lesions Trauma: no evidence of skin trauma Neurologic: awake; not obtunded Speech / Cognition: normal speech Motor/Sensory: no tremor Psychiatric: Orientation: alert and oriented x 3 Genitourinary: no CVA tenderness Lymphatic: no lymphadenopathy Results & Data Vital Signs (Past 12 Hours) Vital Signs Temp Pulse Resp BP Pulse Ox 04/09/20 07:13 36.5 C 57 L 20 134/88 97 04/08/20 23:01 36.5 C 57 L 18 132/80 96 PG Care Time/CCT Total # of Minutes Spent Total Time Spent with Patient: Total time spent is greater than 50% in coordination of care (as documented) at patient's floor/unit and/or counseling patient: Coding Level of Care Code 01016 Subseq Hosp Care Lvl 2 Diagnoses Hydronephrosis concurrent with and due to calculi of kidney and ureter N13.2
--- NOTE | 2020-04-09 07:40 | Anesthesiology Consultation ---
Date of Service April 09, 2020 Assessment & Plan (1) Encounter for pre-operative examination: Chart Review Chart Review: Acceptable Risk for Surgery Consults Requested none ASA ASA3 Proposed Anesthesia Anesthesia Type: MAC Risk / Benefits Reviewed With: PT / POA / Parent / Guardian, Accepts Plan and Informed Consent Obtained History Surgery Operation Date: 04/09/20 09:20 Proposed Procedures p Cystoscopy, Right Ureteral Stent Placement - Tony Hinojosa MD Height/Weight Height: 5 ft 8 in Weight: 132.2 kg Allergies Allergy/AdvReac Type Severity Reaction Status Date / Time No Known Allergies Allergy Verified 04/08/20 05:39 Medications Home Medications Medication Instructions Recorded Confirmed Last Taken levetiracetam 1,000 mg PO BID 02/21/20 04/08/20 02/21/20 metformin 1,000 mg PO BID 02/21/20 04/08/20 02/21/20 cyclobenzaprine 10 mg PO BID PRN #10 tab 03/31/20 04/08/20 Unknown warfarin See Rx Instructions .ROUTE .COMPLEX 03/31/20 04/08/20 03/31/20 5 MG Active Medications Generic Name Dose Route Start Last Admin Trade Name Freq PRN Reason Stop Dose Admin Acetaminophen 650 mg 04/08/20 09:13 04/08/20 15:20 Tylenol PO 05/08/20 09:12 650 mg Q4H PRN Administration pain/fever Ciprofloxacin 400 mg in 200 mls @ 100 mls/hr 04/08/20 10:00 04/09/20 00:02 Cipro IV 04/13/20 09:59 Infused Q12H KEITH Infusion Protocol Ketorolac Tromethamine 15 mg 04/08/20 16:39 04/08/20 16:51 Toradol IV 04/13/20 16:38 15 mg Q6H PRN Administration Headache or Pain Levetiracetam 1,000 mg 04/08/20 09:13 04/08/20 20:46 Keppra PO 05/08/20 09:12 1,000 mg BID KEITH Administration Morphine Sulfate 4 mg 04/08/20 09:28 04/08/20 11:55 Morphine Sulfate IV 04/22/20 09:27 4 mg Q4 PRN Administration Pain NPO Date Last Intake of Fluids: 04/08/20 Time Last Intake of Fluids: 23:59 Date Last Intake of Solids: 04/08/20 Time Last Intake of Solids: 18:00 Past Medical History Medical History Admitted to intensive care unit Cerebral venous sinus thrombosis, acute DM type 2 (diabetes mellitus, type 2) (Chronic) Seizure-like activity Stroke Exercise / Class Metabolic Activity II 4-5 Yardwork/Stairs/Walk up hill Past Family History Family History Denies family history of Seizure Past Surgical History Surgical History H/O umbilical hernia repair (Chronic) History of dental surgery (Chronic) Past Anesthesia History No Hx of Anesthesia Complications and No Family Hx of Anesthesia Complications History of PONV No Hx of PONV and No Hx of Motion Sickness Social History Smoking Status: Never smoker Do You Dip or Chew Tobacco: No Hx Alcohol Use: Yes Alcohol type: beer alcohol intake frequency: holidays/special occasions only Hx Substance Use: No substance use type: does not use Physical Exam Vital Signs Last Vital Signs Temp 97.7 F 04/09/20 07:13 Pulse 57 L 04/09/20 07:13 Resp 20 04/09/20 07:13 BP 134/88 04/09/20 07:13 Pulse Ox 97 04/09/20 07:13 ENMT Mouth: no dentition abnormality Thyromental Distance: > or= 3.5 Finger Breadths Mallampati Class: III Neck normal visual inspection Respiratory normal respiratory effort Auscultation: lungs clear to auscultation bilaterally Cardiovascular Rate/Rhythm: regular rate and regular rhythm Testing Laboratory Results 04/09/20 05:39 04/09/20 05:39 PT 24.7 Seconds (9.0-12.0) H 04/09/20 05:39 INR 2.5 (0.9-1.1) H 04/09/20 05:39 APTT 34.4 Seconds (21.0-31.0) H 04/08/20 05:15 Hemoglobin A1c 5.8 % (4.5-5.6) H 04/09/20 05:39 Urine Color Dark Yellow 04/08/20 04:45 Urine Appearance Cloudy (Clear) A 04/08/20 04:45 Urine pH 5.0 (4.5-7.5) 04/08/20 04:45 Ur Specific [place] 1.035 (1.000-1.030) H 04/08/20 04:45 Urine Protein 2+ (Negative) H 04/08/20 04:45 Urine Glucose (UA) Negative (Negative) 04/08/20 04:45 Urine Ketones Trace (Negative) H 04/08/20 04:45 Urine Nitrite Negative (Negative) 04/08/20 04:45 Ur Leukocyte Esterase Trace (Negative) H 04/08/20 04:45 Urine WBC (Auto) 1-5 /hpf (0-5) 04/08/20 04:45 Urine RBC (Auto) >30 /hpf (0-4) H 04/08/20 04:45 U Hyaline Cast (Auto) 0 /lpf (0-5) 04/08/20 04:45 U Epithel Cells (Auto) 5-10 /lpf (0-5) H 04/08/20 04:45 Urine Bacteria (Auto) Negative (Negative) 04/08/20 04:45 04/09/20 04/08/20 04/08/20 04:06 23:59 20:05 POC Glucose 98 101 H 107 H Electrocardiogram Date: 03/31/20 Normal sinus rhythm, rate 70 bpm Normal ECG When compared with ECG of 21-FEB-2020 20:22, Nonspecific T wave abnormality no longer evident in Anterior leads Confirmed by Junior Mcmillan ([id number]) on 04/01/2020 7:36:14 PM Chest X-Ray Date: 03/31/20 Findings: + NAD
[2020-04-09] MEDS ORDERED: ATROPINE SULFATE 0.1 MG/ML 10ML SYR IV PRN (07:46)
[2020-04-09] MEDS ORDERED: ePHEDrine sulfate 50 MG/ML AMP IV PRN (07:46)
[2020-04-09] MEDS ORDERED: ONDANSETRON INJ 2 MG/ML 2 ML VIAL IV PRN (07:46)
[2020-04-09] MEDS ORDERED: fentaNYL citrate 100 MCG/2 ML VIAL IV PRN (07:46)
[2020-04-09] MEDS ORDERED: LIDOCAINE HCL 2% 2 ML VIAL/AMP(20MG/ML) INFIL ONE (08:15)
[2020-04-09] MEDS ORDERED: fentaNYL citrate 100 MCG/2 ML VIAL ONE (08:15)
[2020-04-09] MEDS ORDERED: PROPOFOL IV EMULSION 10 MG/ML 20 ML VIAL IV ONE (08:15)
[2020-04-09] MEDS ORDERED: MIDAZOLAM HCL 1 MG/ML 2ML VIAL ONE (08:15)
--- NOTE | 2020-04-09 08:17 | Hospitalist Progress Note ---
Date of Service April 09, 2020 Assessment & Plan (1) Testicular pain, right: (2) Renal stone: (3) UTI (urinary tract infection): (4) DM type 2 (diabetes mellitus, type 2): (5) Hydronephrosis concurrent with and due to calculi of kidney and ureter: (6) VALDO (acute kidney injury): IV Cipro, on case, IV Fluids, Pain Meds, Hold Warfarin-Hx of Cerebral V Thrombosis/CVA/Seizure, Continue Keppra, Hold Metformin, SSI A 7 mm obstructing stone at the right ureteropelvic junction resulting in mild right hydronephrosis. OR today, VALDO Resolved ROS-No Headache, No Visual Changes, No Nausea, No Vomiting, No Fever, No Chills, No Neck Pain or Stiffness, No Chest Pain, No Palpitations, No SOB, No SCHULZ, No Cough, No Sputum, No Wheezing, No Abdominal Pain, No Diarrhea, No Hematemesis, No Hemoptysis, No Unexpected Weight Loss, No Flank pain, No Melena, No Hematochezia, No Frequency, No Urgency, No Burning, No Hematuria, No Rashes, No Diaphoresis. Appetite is Normal, R Testicular Pain Physical Exam Gen-AAO x 3, NAD, Afebrile Head-NCAT, EOMI, PERRLA, Anicteric Sclera, No Posterior Pharyngeal Erythema Neck-Supple, No JVD, No Thyromegaly, No Masses, No LAD, No Bruits Lungs-Clear to Auscultation Bilaterally, No Rales, No Rhonchi, No Wheezing, No Crepitus Chest-No S4, +S1, +S2, No S3, No Murmurs, No Rubs, No Gallops, No Ectopy Abdomen-Soft, Bowel Sounds Present, Non Tender, Non Distended, No Hepatomegaly, No Splenomegaly, No Palpable Masses, No Rebound, No Rigidity, No Guarding Musculoskeletal-Full Range of Motion Bilaterally, No CVAT Extremities-No Cyanosis, No Clubbing, No Edema Nuero-Cranial Nerves II-XII grossly intact, Motor WNL, DTRs WNL, Strength WNL, Non Focal Psych-Normal Mood Admission and Anticipated Discharge Date Admission Date: April 08, 2020 Anticipated date of discharge: 04/09/20 Results & Data Results & Data ([facility]) Vital Signs (Past 12 Hours) Vital Signs Temp Pulse Resp BP Pulse Ox 04/09/20 07:13 36.5 C 57 L 20 134/88 97 04/08/20 23:01 36.5 C 57 L 18 132/80 96
[2020-04-09] MEDS ORDERED: INSULIN GLARGINE SOLOSTAR 100 UNITS/ML 3 ML PEN SC SCH ×2 (09:00→21:00)
--- NOTE | 2020-04-09 09:12 | Operative Report ---
PG Post Operative Report Pre & Post Diagnosis Operation Date: 04/09/20 09:20 Pre-Op Diagnosis: Right Ureteral Stone Post-Op Diagnosis: Right Ureteral Stone I identified the patient and participated in the time-out.: Yes Procedure Operation Date: 04/09/20 09:20 Actual Procedures p Cystoscopy, Right Ureteral Stent Placement(Right) - Tony Hinojosa MD Surgeon Junior Hinojosa MD Mental Health Program Specialist none Estimated Blood Loss 0 Findings Consistent with Post-Op Diagnosis Specimens none Description of Procedure The patient was identified in the preoperative holding area, appropriate informed consents were reviewed and completed and the patient was transferred to the operative suite. Upon arrival, appropriate antibiotics and anesthesia were administered and the patient was placed in dorsal lithotomy position and prepped and draped in sterile fashion. To begin the case I passed a 22 Estonian cystoscope, inspection of the urethra was unremarkable. He has a small prostate as would be expected for his age. Bladder was healthy in appearance and ureteral orifices were in orthotopic position. I turned my attention of the right ureteral orifice and cannulated it with a sensor wire. This wire advanced to the kidney without difficulty. I believe the stone seen on preoperative imaging was pushed in the lower pole of the kidney. I subsequently placed a 6 Estonian by 26 cm double-J ureteral stent seeing a good curl in the kidney and the bladder. The case was concluded and he was returned to the PACU in stable condition. No complications. I attest to the content of the Intraoperative Record and any orders documented therein. Any exceptions are noted below.
--- NOTE | 2020-04-09 09:16 | Fluoroscopy Report ---
PETRONA LEACH CLINICAL HISTORY: STENT PLACEMENT RT COMPARISON STUDY: CT scan dated 04/08/2020 FLUOROSCOPY TIME: 6 seconds. NUMBER OF FLUOROSCOPIC IMAGES: 1 FINDINGS: A single intraoperative fluoroscopic spot image demonstrates the proximal portion of a righ t-sided nephroureteral stent. The pigtail was not fully formed. IMPRESSION: Intraoperative fluoroscopic spot image demonstrating the proximal portion of a right-alana ed nephroureteral stent ACT 112: Negative or not required by law. Electronically signed by: Live Bowen M.D. 04/09/2020 9:15 AM
--- NOTE | 2020-04-09 09:28 | Anesthesiology Progress Note ---
Date of Service April 09, 2020 Anesthesia Post Procedure Vital Signs Vital Signs: Temp Pulse Pulse Resp BP BP Pulse Ox 04/09/20 09:20 64 14 153/99 H 93 04/09/20 09:14 97.5 F L 55 L 15 159/100 H 94 04/09/20 07:13 97.7 F 57 L 20 134/88 97 04/08/20 23:01 97.7 F 57 L 18 132/80 96 04/08/20 15:10 98.1 F 72 18 149/90 H 94 04/08/20 10:10 97.9 F 74 16 146/91 H 97 Pain Intensity Right Groin: Pain Intensity: 5 Transfer of Care Handoff Completed per policy Notes Mental Status: alert / awake / arousable and participated in evaluation Patient Amnestic to Procedure: Yes Nausea / Vomiting: adequately controlled Pain: adequately controlled Airway Patency, RR, SpO2: stable & adequate BP & HR: stable & adequate Hydration State: stable & adequate Anesthetic Complications: no major complications apparent and Pt Satisfied with anesthetic care
--- NOTE | 2020-04-09 09:47 | Pharmacy Report ---
Glycemic Control Progress Note - Date of Service April 09, 2020 - Scope Glycemic Pharmacist consulted for glycemic control to write orders per [facility] inpatient glycemic control protocol. - Objective Accuchecks BSG(last 24 hours):: 04/08/20 04/08/20 04/08/20 10:16 12:09 16:29 Glucose POC Glucose 130 H 141 H 90 04/08/20 04/08/20 04/09/20 20:05 23:59 04:06 Glucose POC Glucose 107 H 101 H 98 04/09/20 04/09/20 05:39 09:16 Glucose 96 POC Glucose 100 H HbA1c:: Hemoglobin A1c 5.8 % (4.5-5.6) H 04/09/20 05:39 - Recent Pertinent Medications The patient is currently receiving: * Basal insulin: Lantus 25 units X 1 * Correctional Insulin: Novolog Correction per scale ACHS Goal Range: Low 110 mg/dL - High 140 mg/dL Correction Factor: 25 mg/dL/unit * Prandial insulin: Per carb ratio of 1 unit per 8 grams CHO consumed - Outpatient Anti-Diabetic Meds metformin 1 gm PO BID - Assessment & Plan ASSESSMENT: * See progress note from 04/08/2020 for more background info, in short: * Pt receiving SQ basal bolus insulin regimen for hyperglycemia secondary to baseline DM (outpatient regimen on hold). Patient status post R ureteral stent placement today. * Patient is currently receiving an average of 40 units of insulin per day * 25 units of basal insulin * 15 units of prandial/correctional insulin * BSGs ranging 90 - 141 mg/dl over the past 24hrs * Changes needed to insulin regimen: * AM Fasting BSG = 98 mg/dl. This is in goal range for patient based on inpatient targets and co-morbidities. Patient is NPO so held this morning's Lantus. Patient's HbA1C is vastly improved compared to last year (5.8% vs 10.6%) indicating that with metformin the patient still has decent insulin production. Will do a scale for this evening of Lantus. * Post-prandial BSGs are in range therefore no changes needed to CF/CR (weight-based stress of 2). * Total daily dose = ? units. Will become more clear after surgery. * Additional notes / comments: plan to restart metformin once stable. PLAN FOR INPATIENT GLYCEMIC CONTROL: * Starting Lantus 0-20 units SQ HS * hold Lantus if BSG < 120 mg/dL * Lantus 10 units if BSG 120-160 mg/dL * Lantus 15 units if BSG 161-200 mg/dL * Lantus 20 units if BSG > 200 mg/dL * Continuing correction factor of 25 mg/dl/unit * Continuing carb ratio of 1 unit per 8 grams CHO consumed * Continuing goal range of Low 110 mg/dL - High 140 mg/dL RECOMMENDATIONS FOR DISCHARGE: * Patient's HbA1C well controlled. Continue current regimen. Thank you.
[2020-04-09] MEDS: levETIRAcetam 500 MG TAB PO SCH ×2 (10:28→21:37)
[2020-04-09] MEDS ORDERED: Nursing to Pharmacy Communication ONE (10:37)
[2020-04-09] MEDS: CIPROFLOXACIN / D5W 400 MG/200 ML BAG IV SCH (11:11)
[2020-04-09] MEDS ORDERED: INSULIN ASPART 100 UNITS/ML 3 ML PEN SC SCH (12:00)
[2020-04-09] MEDS: KETOROLAC TROMETHAMINE 15 MG/ML VIAL IV PRN (12:16)
[2020-04-09] MEDS: lisinopriL 10 MG TAB PO SCH (12:28)
[2020-04-09] MEDS: INSULIN ASPART 100 UNITS/ML 3 ML PEN SC SCH ×3 (12:39→21:37)
[2020-04-09] MEDS ORDERED: cefTRIAXone SODIUM 1,000 MG in DEXTROSE 5% 50 ML IV SCH (13:45)
[2020-04-09] MEDS ORDERED: cefTRIAXone SODIUM 2,000 MG in DEXTROSE 5% 50 ML IV SCH (13:45)
[2020-04-09] MEDS: AMLODIPINE BESYLATE 5 MG TAB PO SCH (14:01)
[2020-04-09] MEDS ORDERED: IBUPROFEN 600 MG TAB PO PRN (14:17)
[2020-04-09] MEDS: MoRPHine SULFATE 4 MG/ML 1 ML CARP\\VIAL IV PRN ×2 (14:21→21:41)
[2020-04-09] MEDS ORDERED: WARFARIN SOD 5 MG TAB PO SCH (16:00)
[2020-04-10] MEDS ORDERED: Nursing to Pharmacy Communication ONE (01:37)
[2020-04-10 05:12] LABS: Hematocrit (blood only) 44.6 % (42-52); Mean Corpuscular Hemoglobin 28.8 pg (25-34); Mean Corpuscular Hgb Conc 35.9 g/dL (32-36); Mean Corpuscular Volume 80.2 fL (80-100); Mean Platelet Volume 9.4 fL (7.4-10.4); Platelet Count 169 K/uL (130-400); RDW Coefficient of Variation 13.7 % (11.5-14.5); RDW Standard Deviation 39.5 fL (36.4-46.3); Red Blood Count 5.56 M/uL (4.7-6.1); White Blood Count 8.51 K/uL (4.8-10.8)
[2020-04-10 05:21] LABS: INR 2.2 (0.9-1.1); Prothrombin Time 21.8 Seconds (9.0-12.0)
[2020-04-10 05:33] LABS: BUN Creatinine Ratio 8.9 (10-20); Calcium 8.6 mg/dl (8.5-10.1); Creatinine Clr Calc Pharmacy 109.1 ml/min; Est GFR (African American) 86.6; Est GFR (Non-African American) 74.7; Potassium 4.3 mmol/L (3.5-5.1)
--- NOTE | 2020-04-10 07:24 | Hospitalist Progress Note ---
Date of Service April 10, 2020 Assessment & Plan (1) Testicular pain, right: (2) Renal stone: (3) UTI (urinary tract infection): (4) DM type 2 (diabetes mellitus, type 2): (5) Hydronephrosis concurrent with and due to calculi of kidney and ureter: (6) VALDO (acute kidney injury): IV Cipro, on case, IV Fluids, Pain Meds, Hold Warfarin-Hx of Cerebral V Thrombosis/CVA/Seizure, Continue Keppra, Hold Metformin, SSI A 7 mm obstructing stone at the right ureteropelvic junction resulting in mild right hydronephrosis. OR yesterday, VALDO Resolved DC later today if OK c ROS-No Headache, No Visual Changes, No Nausea, No Vomiting, No Fever, No Chills, No Neck Pain or Stiffness, No Chest Pain, No Palpitations, No SOB, No SCHULZ, No Cough, No Sputum, No Wheezing, No Abdominal Pain, No Diarrhea, No Hematemesis, No Hemoptysis, No Unexpected Weight Loss, No Flank pain, No Melena, No Hematochezia, No Frequency, No Urgency, No Burning, No Hematuria, No Rashes, No Diaphoresis. Appetite is Normal, Still c R Testicular Pain Physical Exam Gen-AAO x 3, NAD, Afebrile Head-NCAT, EOMI, PERRLA, Anicteric Sclera, No Posterior Pharyngeal Erythema Neck-Supple, No JVD, No Thyromegaly, No Masses, No LAD, No Bruits Lungs-Clear to Auscultation Bilaterally, No Rales, No Rhonchi, No Wheezing, No Crepitus Chest-No S4, +S1, +S2, No S3, No Murmurs, No Rubs, No Gallops, No Ectopy Abdomen-Soft, Bowel Sounds Present, Non Tender, Non Distended, No Hepatomegaly, No Splenomegaly, No Palpable Masses, No Rebound, No Rigidity, No Guarding Musculoskeletal-Full Range of Motion Bilaterally, No CVAT Extremities-No Cyanosis, No Clubbing, No Edema Nuero-Cranial Nerves II-XII grossly intact, Motor WNL, DTRs WNL, Strength WNL, Non Focal Psych-Normal Mood Admission and Anticipated Discharge Date Admission Date: April 08, 2020 Anticipated date of discharge: 04/10/20 Results & Data Results & Data ([facility]) Vital Signs (Past 12 Hours) Vital Signs Temp Pulse Resp BP BP Pulse Ox 04/10/20 07:16 36.6 C 71 16 137/78 96 04/10/20 03:32 36.8 C 62 16 128/82 95 04/09/20 22:57 36.8 C 89 18 145/88 H 98 04/09/20 19:59 36.9 C 73 19 151/91 H 98
--- NOTE | 2020-04-10 07:30 | Discharge Summary ---
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 He came to the ER and was found to have R renal stone c mild hydronephrosis. He was given pain meds and Cipro in the ER and will be seen by Dr Hinojosa from Urology. Admission Exam Per Admitting Provider Gen-AAO x 3, NAD, Afebrile Head-NCAT, EOMI, PERRLA, Anicteric Sclera, No Posterior Pharyngeal Erythema Neck-Supple, No JVD, No Thyromegaly, No Masses, No LAD, No Bruits Lungs-Clear to Auscultation Bilaterally, No Rales, No Rhonchi, No Wheezing, No Crepitus Chest-No S4, +S1, +S2, No S3, No Murmurs, No Rubs, No Gallops, No Ectopy Abdomen-Soft, Bowel Sounds Present, Non Tender, Non Distended, No Hepatomegaly, No Splenomegaly, No Palpable Masses, No Rebound, No Rigidity, No Guarding Musculoskeletal-Full Range of Motion Bilaterally, No CVAT Extremities-No Cyanosis, No Clubbing, No Edema Nuero-Cranial Nerves II-XII grossly intact, Motor WNL, DTRs WNL, Strength WNL, Non Focal Psych-Normal Mood Principal Diagnosis (1) Testicular pain, right: (2) Renal stone: (3) UTI (urinary tract infection): (4) DM type 2 (diabetes mellitus, type 2): (5) Hydronephrosis concurrent with and due to calculi of kidney and ureter: (6) VALDO (acute kidney injury): Discharge Exam see below Discharge Data Allergies Allergy/AdvReac Type Severity Reaction Status Date / Time No Known Allergies Allergy Verified 04/08/20 05:39 Consultations 04/08/20 07:28 ED Decision to Admit Stat 04/08/20 09:13 Consult Urology Routine Procedures Performed Operation Date: 04/09/20 09:20 Actual Procedures p Cystoscopy, Right Ureteral Stent Placement(Right) - Tony Hinojosa MD Ordered Studies 04/08/20 04:50 CT abd pelvis wo con Urgent US scrotum/testicle Urgent 04/09/20 FL KUB Routine FL fluoroscopy <1hr Routine Current Diagnoses Type 2 diabetes mellitus without complications (04/08/20) Hydronephrosis with renal and ureteral calculous obstruction (04/08/20) Acute kidney failure, unspecified (04/08/20) Calculus of kidney (04/08/20) Urinary tract infection, site not specified (04/08/20) Right testicular pain (04/08/20) Encounter for other preprocedural examination (04/08/20) Allergies No Known Allergies Allergy (Verified 04/08/20 05:39) Height/Weight/Isolation Height 5 ft 8 in Weight 132.2 kg Chemistry 04/09/20 04/10/20 05:39 04:44 Sodium 140 138 Potassium 4.0 4.3 Chloride 107 105 Carbon Dioxide 29 29 Anion Gap 4.0 4.0 BUN 14 11 Creatinine 1.21 1.22 Glucose 96 105 H Hospital Course (1) Testicular pain, right: (2) Renal stone: (3) UTI (urinary tract infection): (4) DM type 2 (diabetes mellitus, type 2): (5) Hydronephrosis concurrent with and due to calculi of kidney and ureter: (6) VALDO (acute kidney injury): DC on Omnicef, F/u c , Continue Keppra, Metformin A 7 mm obstructing stone at the right ureteropelvic junction resulting in mild right hydronephrosis. s/p Cystoscopy, Right Ureteral Stent Placement(Right) - Junior Hinojosa MD DC later today if OK c ROS-No Headache, No Visual Changes, No Nausea, No Vomiting, No Fever, No Chills, No Neck Pain or Stiffness, No Chest Pain, No Palpitations, No SOB, No SCHULZ, No Cough, No Sputum, No Wheezing, No Abdominal Pain, No Diarrhea, No Hematemesis, No Hemoptysis, No Unexpected Weight Loss, No Flank pain, No Melena, No Hematochezia, No Frequency, No Urgency, No Burning, No Hematuria, No Rashes, No Diaphoresis. Appetite is Normal, Still c R Testicular Pain Physical Exam Gen-AAO x 3, NAD, Afebrile Head-NCAT, EOMI, PERRLA, Anicteric Sclera, No Posterior Pharyngeal Erythema Neck-Supple, No JVD, No Thyromegaly, No Masses, No LAD, No Bruits Lungs-Clear to Auscultation Bilaterally, No Rales, No Rhonchi, No Wheezing, No Crepitus Chest-No S4, +S1, +S2, No S3, No Murmurs, No Rubs, No Gallops, No Ectopy Abdomen-Soft, Bowel Sounds Present, Non Tender, Non Distended, No Hepatomegaly, No Splenomegaly, No Palpable Masses, No Rebound, No Rigidity, No Guarding Musculoskeletal-Full Range of Motion Bilaterally, No CVAT Extremities-No Cyanosis, No Clubbing, No Edema Nuero-Cranial Nerves II-XII grossly intact, Motor WNL, DTRs WNL, Strength WNL, Non Focal Psych-Normal Mood Total Time Total Time Spent Total Time Spent (In Minutes): 45 mins Total Time Includes: Examination of the Patient, Discharge Planning, Medication Reconciliation and Communication With Other Providers Discharge Plan Discharge Items Patient Disposition: Home - Self-Care Reason For Visit: TESTICULAR PAIN, ABDOMINAL PAIN Discharge Diagnosis: (1) Testicular pain, right: (2) Renal stone: (3) UTI (urinary tract infection): (4) DM type 2 (diabetes mellitus, type 2): (5) Hydronephrosis concurrent with and due to calculi of kidney and ureter: (6) VALDO (acute kidney injury): Activity: Resume your previous activity Lifting: Gradually increase as tolerated Bathing: No limitations Sexual Activity: When tolerated Exercise/Sports: Gradually increase as tolerated Driving/Machine Use: No limitations Weightbearing: Full weightbearing Non-emergency contact: Primary Care Provider and Urologist Call non-emergency contact if: you have any medication questions Follow-up/Referrals: William Brown MD [Primary Care Provider] - Tony Hinojosa MD [Physician] - (As directed) Diet: Carb Consistent or DM2 Addtl Attending Provider Instructions: None Pending Studies at Discharge: No Stand-Alone Forms: My ReferralMD, Smoking Cessation Medications and DC Order Prescriptions: New acetaminophen [Mapap (acetaminophen)] 325 mg Tablet 650 mg PO Q4H PRN (Reason: fever or pain) Qty: 90 RF: 0 ibuprofen 600 mg Tablet 600 mg PO Q6H PRN (Reason: fever or pain) Qty: 90 RF: 0 cefdinir 300 mg capsule 300 mg PO BID 5 Days Qty: 10 RF: 0 Continued levetiracetam 500 mg tablet 1,000 mg PO BID RF: 0 metformin 1,000 mg tablet 1,000 mg PO BID RF: 0 warfarin 5 mg tablet See Rx Instructions .ROUTE .COMPLEX RF: 0 cyclobenzaprine 10 mg tablet 10 mg PO BID PRN (Reason: muscle spasm) Qty: 10 RF: 0 Discharge Orders: Discharge Order (Routine); Ordered 04/10/20 Ordered By: Adan Patel Admission Data Admit Date/Time: 04/08/20 07:52 Attending Provider: Adan Patel Admit Provider: Adan Patel Primary Care Provider: William Brown Other Providers: Adan Patel ; Tony Hinojosa
[2020-04-10] MEDS: levETIRAcetam 500 MG TAB PO SCH (08:22)
[2020-04-10] MEDS: AMLODIPINE BESYLATE 5 MG TAB PO SCH (08:22)
[2020-04-10] MEDS: INSULIN ASPART 100 UNITS/ML 3 ML PEN SC SCH (08:24)
[2020-04-10] MEDS: lisinopriL 10 MG TAB PO SCH (08:59)
[2020-04-10] MEDS ORDERED: INSULIN GLARGINE SOLOSTAR 100 UNITS/ML 3 ML PEN SC SCH (21:00)
== END 2020-04-10 11:52 | disposition home or self-care (01) | DRG 694 ==
LOC: ED 04:36 → 3N 07:52